=== PATIENT | female | born 1950 | race Caucasian/White ===

== ENCOUNTER 2019-08-22 10:07 | Emergency (ER) | payer MEDICARE, OTHER ==
[~2019-08-22] VITALS: Ht 165.1 cm; Wt 81.6 kg
--- NOTE | 2019-08-22 10:33 | NUR ---
ED Nurse Note: PT WALKED IN TO ER TODAY. AOX4. PT C/O LEFT KNEE PAIN AND SWELLING OF LEFT CALF X 5 DAYS AGO. PT CONCERNED SHE MAY HAVE A DVT. PT STATES SHE HAS BEEN ON A FEW LONG FLIGHTS RECENTLY. ON ASSESSMENT, EQUAL SWELLING NOTED TO BILATERAL LOWER EXTREMITIES. SITE NOT HOT TO TOUCH. NO REDNESS NOTED. FULL ROM OF LEFT KNEE. PT DENIES NUMBNESS OR TINGLING. GAIT STEADY.
--- NOTE | 2019-08-22 10:33 | NUR ---
Note elza in EDM - 08/22/19 at 1038 by [facility] ED Nurse Note: PT WALKED IN TO ER TODAY. AOX4. PT C/O LEFT KNEE PAIN AND SWELLING OF LEFT CALF X 5 DAYS AGO. PT CONCERNED SHE MAY HAVE A DVT. PT STATES SHE HAS BEEN ON A FEW LONG FLIGHTS RECENTLY. ON ASSESSMENT, NO OBVIOUS SWELLING OR REDNESS NOTED. SITE NOT HOT TO TOUCH. FULL ROM OF KNEE. PT DENIES NUMBNESS OR TINGLING. GAIT STEADY.
--- NOTE | 2019-08-22 10:43 | Emergency Room Report ---
History of Present Illness General Chief Complaint: Lower Extremity Injury Source: Patient Present Illness HPI Patient is a 69-year-old female brought in by family member after increased bilateral lower extremity swelling. Patient recently traveled from [place]. She has been on multiple plane flights in the last few days. She reported increased pain and swelling. Primarily to the left leg. She denies any recent trauma. Allergies: Coded Allergies: No Known Allergies (Unverified , 08/22/19) Patient History Past Medical History: see triage record Reviewed Nursing Documentation: PMH: Agreed; PSxH: Agreed Nursing Documentation-PMH Past Medical History: No History, Except For Review of Systems All Other Systems: negative except mentioned in HPI Physical Exam Vital Signs Date Time Temp Pulse Resp B/P (MAP) Pulse Ox O2 Delivery O2 Flow Rate FiO2 08/22/19 10:21 98.2 86 19 148/81 (103) 97 Room Air Sp02 EP Interpretation: reviewed, normal General Appearance: normal inspection, well appearing, no apparent distress, alert, GCS 15 Head: atraumatic ENT: normal ENT inspection, hearing grossly normal, normal voice Neck: normal inspection, full range of motion, supple, no bony tend Respiratory: normal inspection, lungs clear, normal breath sounds, no respiratory distress, no retraction, no wheezing Cardiovascular #1: regular rate, rhythm, no edema Gastrointestinal: normal inspection, normal bowel sounds, non tender, soft, no guarding, no hernia Genitourinary: no CVA tenderness Musculoskeletal: back normal, normal range of motion, other - slight swelling to both legs, left side patella slight ballotable no erythema or warmth Neurologic: normal inspection, alert, oriented x3, responsive, follow up rep III-XII nml as tested, speech normal Psychiatric: normal inspection, judgement/insight normal, mood/affect normal Skin: other - slight venous stasis changes to both legs Medical Decision Making Diagnostic Impression: Primary Impression: Pedal edema Additional Impression: Arthritis ER Course Patient presents with lower extremity swelling. Differential diagnosis include was not limited to congestive heart failure, DVT, renal insufficiency, dependent edema, among others. Duplex ultrasound was ordered due to patient's concerns. Lower extremities do appear to be swollen slightly however this appears to be symmetric. She does appear to have some chronic venous stasis changes. Left knee his patella appears to be minimally ballotable consistent with some arthritic effusion. Patient does not show any evidence of breath and lungs are clear. Patient's duplex ultrasound of both lower extremity showed no evidence of deep venous thrombosis. Patient was advised to follow-up with her primary care physician for further imaging of her left knee. She is advised to return if she has any worsening of condition or other concerns. Patient appears to be stable for outpatient follow-up with her primary care physician. Last Vital Signs Date Time Temp Pulse Resp B/P (MAP) Pulse Ox O2 Delivery O2 Flow Rate FiO2 08/22/19 10:21 98.2 86 19 148/81 (103) 97 Room Air Status: improved Disposition: HOME, SELF-CARE Condition: Stable Scripts Diclofenac Sodium (VOLTAREN) 100 Gm Gel..gram. 5 GM TP DAILY, #100 GM Prov: Bjorn Villalobos MD 08/22/19 Bjorn Villalobos MD Aug 22, 2019 10:43
--- NOTE | 2019-08-22 11:30 | NUR ---
ED Nurse Note: PT LAYING PEACEFULLY IN BED IN NAD. VSS.
--- NOTE | 2019-08-22 12:18 | NUR ---
ED Nurse Note: US AT BEDSIDE FOR VENOUS DUPLEX.
[2019-08-22] MEDS ORDERED: VOLTAREN100 G1 TP (12:56)
[2019-08-22] MEDS ORDERED: Albuterol/Ipratropium 3ml neb HHN ONE (13:00)
--- NOTE | 2019-08-22 13:20 | NUR ---
ED Nurse Note: PT LAYING PEACEFULLY IN BED IN NAD. AOX4. DISCHARGE PAPERWORK EXPLAINED TO PT. PT VERBALIZES UNDERSTANDING AND ALL QUESTIONS ANSWERED. DISCHARGE PAPERWORK GIVEN TO PT AND ID WRISTBAND REMOVED. PT WALKED OUT OF ER WITH STEADY GAIT AND ALL BELONGINGS ACCOMPANIED BY .
[2019-08-22 13:21] VITALS: BP 142/76
--- NOTE | 2019-08-22 18:31 | Diagnostic Imaging Report ---
EXAM: US Duplex Bilateral Lower Extremity Veins CLINICAL HISTORY: PAIN TECHNIQUE: Real-time duplex ultrasound scan of the bilateral lower extremity veins integrating B-mode two-dimensional vascular structure, Doppler spectral analysis, color flow Doppler imaging and compression. COMPARISON: No relevant prior studies available. FINDINGS: Right deep veins: Unremarkable. No DVT in the right common femoral, femoral, proximal deep femoral or popliteal veins. The veins demonstrate normal color flow, are normally compressible, with normal phasic flow and or augmentation response. Right superficial veins: Unremarkable. No thrombus in the visualized right great saphenous vein. Left deep veins: Unremarkable. No DVT in the left common femoral, femoral, proximal deep femoral or popliteal veins. The veins demonstrate normal color flow, are normally compressible, with normal phasic flow and or augmentation response. Left superficial veins: Unremarkable. No thrombus in the visualized left great saphenous vein. Soft tissues: No acute findings. IMPRESSION: No DVT demonstrated.
== END 2019-08-22 13:24 | disposition home or self-care (01) ==
LOC: EMR 10:50
DX: R60.0 Localized edema (principal); M19.90 Unspecified osteoarthritis, unspecified site
CPT/HCPCS: 93970; 99284